=== PATIENT | male | born 1965 | race Caucasian/White ===

== ENCOUNTER → 2018-01-07 | Outpatient (CLI) | payer OTHER ==
[~2018-01-07] MED LIST: FENTANYL PF 100 MCG/2ML ONE; FLUMAZENIL 0.1 MG/1 ML, 5ML ONE; GADOBUTROL 10 MMOL/10 ML PFS ONE; MIDAZOLAM 1 MG/ML, 5ML ONE; NALOXONE 1 MG/ML, 2ML ONE
== END | disposition home or self-care (01) ==
LOC: RAD 06:17
PROVIDERS: ATTEND Neurological Surgery
DX: D32.9 Benign neoplasm of meninges, unspecified (principal)
CPT/HCPCS: 70553; 99156; 99157; A9585; J2250; J3010; J2310

== ENCOUNTER → 2018-02-05 | Outpatient (CLI) | payer OTHER | END | disposition home or self-care (01) | LOC: ROC 07:41 | PROVIDERS: ATTEND Radiology Radiation Oncology | DX: D32.0 Benign neoplasm of cerebral meninges (principal) | CPT/HCPCS: 99214; G0463 ==

== ENCOUNTER 2018-03-27 07:35 | Outpatient (CLI) | payer OTHER ==
[2018-03-27] MEDS ORDERED: FENTANYL PF 100 MCG/2ML ONE (08:19)
[2018-03-27] MEDS ORDERED: NALOXONE 1 MG/ML, 2ML ONE (08:19)
[2018-03-27] MEDS ORDERED: MIDAZOLAM 1 MG/ML, 5ML ONE (08:19)
[2018-03-27] MEDS ORDERED: FLUMAZENIL 0.1 MG/1 ML, 5ML ONE (08:19)
[2018-03-27] MEDS ORDERED: GADOBUTROL 10 MMOL/10 ML PFS ONE (08:59)
== END 2018-03-27 23:59 | disposition home or self-care (01) ==
LOC: RAD 07:35
PROVIDERS: ATTEND Radiology Radiation Oncology
DX: D32.0 Benign neoplasm of cerebral meninges (principal); R60.0 Localized edema
CPT/HCPCS: 70553; 99156; 99157; A9585; J2250; J3010; J2310

== ENCOUNTER 2018-09-22 11:54 | Outpatient (CLI) | payer OTHER | END 2018-09-22 23:59 | disposition home or self-care (01) | LOC: RAD 11:54 | PROVIDERS: ATTEND Radiology Radiation Oncology | DX: D32.0 Benign neoplasm of cerebral meninges (principal); M50.322 Other cervical disc degeneration at C5-C6 level | CPT/HCPCS: 70553; 72156; 99156; 99157; A9585; J2250; J3010 ==

== ENCOUNTER 2018-10-08 08:41 | Outpatient (CLI) | payer OTHER | END 2018-10-08 23:59 | disposition home or self-care (01) | LOC: ROC 08:41 | PROVIDERS: ATTEND Radiology Radiation Oncology | DX: D32.0 Benign neoplasm of cerebral meninges (principal) | CPT/HCPCS: 99213; G0463 ==

== ENCOUNTER 2019-01-21 09:17 | Outpatient (CLI) | payer OTHER | END 2019-01-21 23:59 | disposition home or self-care (01) | LOC: ROC 09:17 | PROVIDERS: ATTEND Radiology Radiation Oncology | DX: D32.0 Benign neoplasm of cerebral meninges (principal) | CPT/HCPCS: 99213; G0463 ==

== ENCOUNTER → 2019-07-27 | Outpatient (CLI) | payer OTHER ==
[~2019-07-27] MED LIST changes: -GADOBUTROL 10 MMOL/10 ML PFS ONE; +GADOTERATE 10 MMOL/20 ML SYR ONE
== END | disposition home or self-care (01) ==
LOC: RAD 07:12
PROVIDERS: ATTEND Radiology Radiation Oncology
DX: D42.0 Neoplasm of uncertain behavior of cerebral meninges (principal); I10 Essential (primary) hypertension; K21.9 Gastro-esophageal reflux disease without esophagitis
CPT/HCPCS: 70553; 99156; 99157; A9575; J2250; J3010; J2310

== ENCOUNTER 2020-07-18 08:52 | Outpatient (CLI) | payer OTHER ==
[~2020-07-18 08:52] MED LIST changes: -FENTANYL PF 100 MCG/2ML ONE; -FLUMAZENIL 0.1 MG/1 ML, 5ML ONE; -GADOTERATE 10 MMOL/20 ML SYR ONE; +GADOTERATE 10 MMOL/20ML SYR ONE; +GADOTERATE 5 MMOL/10ML SYR ONE; -MIDAZOLAM 1 MG/ML, 5ML ONE; -NALOXONE 1 MG/ML, 2ML ONE
[2020-07-18] MEDS ORDERED: MIDAZOLAM 1 MG/ML, 5ML ONE (09:41)
[2020-07-18] MEDS ORDERED: FLUMAZENIL 0.1 MG/1 ML, 5ML ONE (09:41)
[2020-07-18] MEDS ORDERED: NALOXONE 1 MG/ML, 2ML ONE (09:41)
[2020-07-18] MEDS ORDERED: FENTANYL PF 100 MCG/2ML ONE (09:41)
== END 2020-07-18 23:59 | disposition home or self-care (01) ==
LOC: RAD 08:52
PROVIDERS: ATTEND Radiology Radiation Oncology
DX: D32.0 Benign neoplasm of cerebral meninges (principal); G93.89 Other specified disorders of brain; K21.9 Gastro-esophageal reflux disease without esophagitis; F40.240 Claustrophobia
CPT/HCPCS: 70553; 99156; 99157; A9575; J2250; J3010; J2310

== ENCOUNTER → 2020-09-01 | Outpatient (CLI) | payer OTHER | END | disposition home or self-care (01) | LOC: ROC 07:27 | PROVIDERS: ATTEND Radiology Radiation Oncology | DX: Z08 Encounter for follow-up examination after completed treatment for malignant neoplasm (principal); D32.0 Benign neoplasm of cerebral meninges | CPT/HCPCS: 99212; G0463 ==